=== PATIENT | female | born 1965 | race African-American/Black ===

== ENCOUNTER 2016-08-02 12:41 | Emergency (ER) | payer OTHER ==
[~2016-08-02] VITALS: Ht 154.9 cm; Wt 45.4 kg
[2016-08-02 13:21] VITALS: BP 176/112
--- NOTE | 2016-08-02 13:29 | Emergency Room Report ---
History of Present Illness General Chief Complaint: Multiple Trauma/Fall Present Illness HPI 51-year-old female presents emergency department complaining of 10 out of 10 in severity bilateral lower thigh pain x3 weeks status post fall 3 weeks ago while walking on the sidewalk. Patient also reports itchy rash x2 weeks with lesions all over the body patient nice fevers or chills denies erythema denies recent travel. Patient also reports burning from the lesions denies bleeding, crusting or discharge. Pt. states her leg pain is exacerbated with walking. denies swelling or bruising. Denies numbness tingling or loss of sensation or gross motor movements of the extremities, incontinence of bowel or bladder. Denies CP, Palpitations, LOC, AMS, dizziness, Changes in Vision, Sensation, paresthesias, or a sudden severe headache. Allergies: Coded Allergies: No Known Allergies (Unverified , 08/02/16) Patient History Past Medical History: see triage record Past Surgical History: none Pertinent Family History: none Now: No Immunizations: UTD Reviewed Nursing Documentation: PMH: Agreed, PSxH: Agreed Review of Systems All Other Systems: negative except mentioned in HPI Physical Exam Vital Signs Date Time Temp Pulse Resp B/P Pulse Ox O2 Delivery O2 Flow Rate FiO2 08/02/16 12:54 97.9 110 17 176/112 99 Room Air Sp02 EP Interpretation: reviewed, abnormal - tachycardic and elevated BP General Appearance: alert, GCS 15, non-toxic, mild distress - pt is scratching consistently, other - poor hygiene, desheveled. Head: normocephalic, atraumatic Eyes: bilateral eye PERRL, bilateral eye normal inspection ENT: hearing grossly normal, normal pharynx, no angioedema, normal voice Neck: full range of motion, supple/symm/no masses Respiratory: lungs clear, normal breath sounds, speaking full sentences Cardiovascular #1: regular rate, rhythm, no edema Musculoskeletal: back normal, gait/station normal, normal range of motion, other - no bruises, tender - bilateral thigh pain to superficial touch, no ttp to the knees, calfs, or ankles, no swelling or obvious deformities Neurologic: alert, oriented x3, responsive, motor strength/tone normal, sensory intact, speech normal Psychiatric: judgement/insight normal, memory normal, mood/affect normal, anxious, other - lipsmacking, rapid speech, very talkative -suspected drug use. Skin: normal color, warm/dry, well hydrated, rash - Multiple lesions on the skin throughout the body, lesions are discrete, no erythema noted is moderate excoriations present, several lesions are scabbed with no evidence of secondary infection. Lesions are 2 mm or less some are present in a linear fashion. Lymphatic: no adenopathy Medical Decision Making PA Attestation Dr. Lima is my supervising Physician whom patient management has been discussed with. Diagnostic Impression: Primary Impression: Rash and nonspecific skin eruption Additional Impression: Contusion Qualified Codes: S80.10XA - Contusion of unspecified lower leg, initial encounter ER Course 51-year-old female presents emergency department complaining of 10 out of 10 in severity bilateral lower thigh pain x3 weeks status post fall 3 weeks ago while walking on the sidewalk. Patient also reports itchy rash x2 weeks with lesions all over the body patient nice fevers or chills denies erythema denies recent travel. Patient also reports burning from the lesions denies bleeding, crusting or discharge. Pt. states her leg pain is exacerbated with walking. denies swelling or bruising. Ddx considered but are not limited to Fracture, dislocation, contusion, Sprain/ Strain/Spasm, cellulitis, scabies, shingles, varicella, dermatitis, urticaria, eczema, tinea Vital signs: are WNL, pt. is afebrile, pt is tachycardic with elevated BP. H&PE are most consistent with bed bug lesions, however will treat for scabies due to linear appearance, and pt. presents with obvious poor hygiene both are equally likely. no PE evidence to suggest fracture but will do imaging due to presence of pain with hx of fall even though fall was 3 weeks ago. suspect drug use due to pt. demeanor, and vital signs, pt. also presents with overly talkative and lip smacking. ORDERS: - X-ray Right Femur 2 views - negative for fx, Dislocation, or significant soft tissue injury, per preliminary read in ED by Dr. Lima - X-ray Left Femur 2 views - negative for fx, Dislocation, or significant soft tissue injury, per preliminary read in ED by Dr. Lima - UDS: positive for Cocaine and THC ED INTERVENTIONS: - Toradol 40 mg IM -Bacitracin applied by RN to open lesions. -Benadryl 25mg PO DISCHARGE: At this time pt. is stable for d/c to home. Will provide printed patient care instructions, and any necessary prescriptions. Care plan and follow up instructions have been discussed with the patient prior to discharge. Labs Test 08/02/16 13:15 Urine Opiates Screen Negative (NEGATIVE) Urine Barbiturates Screen Negative (NEGATIVE) Phencyclidine (PCP) Screen Negative (NEGATIVE) Urine Amphetamines Screen Negative (NEGATIVE) Urine Benzodiazepines Screen Negative (NEGATIVE) Urine Cocaine Screen Positive (NEGATIVE) Urine Marijuana (THC) Screen Positive (NEGATIVE) Last Vital Signs Date Time Temp Pulse Resp B/P Pulse Ox O2 Delivery O2 Flow Rate FiO2 08/02/16 13:21 97.9 17 176/112 99 Room Air 08/02/16 12:54 110 Disposition: HOME, SELF-CARE Condition: Stable Scripts Hydrocortisone 2% Cream (ANTI-ITCH 2% CREAM) Y Cr 1 APPLIC TP BID, #56 GM Prov: Leyda Mock 08/02/16 Permethrin* (ELIMITE*) 60 Gm Cream..g. 1 APPLIC TOPIC ONCE, #60 GM 0 Refills Apply cream from head to toe; leave on for 8-14 hours before washing off with water; may reapply in 1 week if live mites appear. Prov: Leyda Mock 08/02/16 Acetaminophen* (TYLENOL EXTRA STRENGTH*) 500 Mg Tablet 500 MG ORAL Q6HR Y for Prn Headache/Temp > 101, #30 TAB 0 Refills Prov: Leyda Mock 08/02/16 Hydroxyzine HCl (Hydroxyzine HCl) 25 Mg Tablet 25 MG ORAL FOUR TIMES A DAY for 7 Days, #30 TAB Prov: Leyda Mock 08/02/16 Referrals: [facility],REFERRING (PCP) Patient Instructions: Bedbugs, [id number], Contusion, [id number], Scabies, Pediatric Additional Instructions: Take medications as directed. Follow up with PCP in 3-5 days Return sooner to ED if new symptoms occur, or current symptoms become worse. - Please note that this Emergency Department Report was dictated using [employer] closer technology software, occasionally this can lead to erroneous entry secondary to interpretation by the dictation equipment. Leyda Mock August 02, 2016 13:29
[2016-08-02] MEDS ORDERED: Ketorolac 60mg Inj IM ONE (13:30)
[2016-08-02] MEDS ORDERED: Bacitracin Oint UD TOPIC ONE (13:45)
[2016-08-02] MEDS ORDERED: TYLENOL EXTRA500 MG ORAL (14:16)
[2016-08-02] MEDS ORDERED: ATARAX25 MG ORAL (14:16)
[2016-08-02] MEDS ORDERED: PERMETHRIN60 GM TOPIC (14:16)
[2016-08-02] MEDS ORDERED: ANTI-ITCH56 GM TP (14:16)
[2016-08-02 14:20] VITALS: BP 176/112
--- NOTE | 2016-08-02 17:33 | Diagnostic Imaging Report ---
Indications: PAIN Technique: Two views of the right femur Comparison: None Findings: No acute fractures. No dislocations. Normal mineralization. Impression: Negative
--- NOTE | 2016-08-03 07:52 | Diagnostic Imaging Report ---
Indications: PAIN Technique: Two views of the left femur Comparison: None Findings: No acute fractures. No dislocations. Normal mineralization. Impression: Negative
== END 2016-08-02 14:20 | disposition home or self-care (01) ==
LOC: EMR 13:11
DX: M79.606 Pain in leg, unspecified (principal); R21 Rash and other nonspecific skin eruption; S80.10XA Contusion of unspecified lower leg, initial encounter; W18.30XA Fall on same level, unspecified, initial encounter; Y93.01 Activity, walking, marching and hiking; Y92.480 Sidewalk as the place of occurrence of the external cause
CPT/HCPCS: 80300; 96372; 99284